=== PATIENT | female | born 1960 | race Caucasian/White ===

== ENCOUNTER 2023-07-24 06:21 | Emergency (ER) | payer BC ==
[2023-07-24 06:35] VITALS: TEMP 98.3; BMI 33.1
[2023-07-24] MEDS ORDERED: DIPHTH,PERTUSS(ACELL),TET 0.5 ML DISP.SYRIN IM ONE ×2 (07:26→07:58)
[2023-07-24] MEDS ORDERED: ACETAMINOPHEN 325 MG TABLET (FP) PO ONE (07:26)
[2023-07-24 07:33] VITALS: BP 183/61; PULSE 53; RESP 20
[2023-07-24] MEDS ORDERED: ACETAMINOPHEN 325 MG TABLET (FP) ONE (07:57)
== END 2023-07-24 08:33 | disposition home or self-care (01) ==
LOC: JER 06:21
PROC: 3E0234Z Introduction of Serum, Toxoid and Vaccine into Muscle, Percutaneous Approach (ICD-10-PCS; principal; 2023-07-24)
DX: S01.81XA Laceration without foreign body of other part of head, initial encounter (principal); W01.198A Fall on same level from slipping, tripping and stumbling with subsequent striking against other object, initial encounter; Y92.002 Bathroom of unspecified non-institutional (private) residence as the place of occurrence of the external cause
CPT/HCPCS: 90715; 99283-25